=== PATIENT | female | born 1960 | race Caucasian/White ===

== ENCOUNTER 2022-12-06 08:13 | Outpatient (CLI) | payer BC, SELFPAY ==
[2022-12-06 19:48] LABS: Basophils Percent Auto 0.7 % (0.2-1.2); Eosinophils Absolute Auto 0.1 K/mm3 (0-0.3); Eosinophils Percent Auto 2.1 % (0-4.4); Hematocrit 42.6 % (37.0-47.0); Hemoglobin 13.8 g/dL (12.0-15.0); Immature Granulocyte Absolute 0.01 K/mm3 (0.00-0.031); Immature Granulocyte Percent A 0.2 % (0-0.5); Immature Platelet Fraction Pct 1.9 % (0.9-11.2); Lymphocytes Absolute Auto 1.56 K/mm3 (0.9-3.2); Mean Corpuscular HGB Conc 32.4 g/dl (32-36); Mean Corpuscular Hemoglobin 30.9 pg (26-34); Mean Corpuscular Volume 95.3 fl (80-100); Monocytes Absolute Auto 0.4 K/mm3 (0.1-0.6); Monocytes Percent Auto 9.7 % (2.6-8.5); Neutrophils Absolute Auto 2.2 K/mm3 (1.3-6.7); Neutrophils Percent Auto 51.3 % (45.5-73.1); Red Blood Count 4.47 M/mm3 (4.2-5.4); Red Cell Distribution Width 12.4 % (11.5-14.5); White Blood Count 4.3 K/mm3 (4.5-10.0)
[2022-12-06 20:22] LABS: Alanine Aminotransferase 33 U/L (6-35); Albumin Level 4.6 g/dL (3.5-5.1); Alkaline Phosphatase 53 U/L (38-126); Anion Gap 10 mmol/L (8-16); Aspartate Amino Transferase 31 U/L (14-36); Bilirubin,Total 0.5 mg/dL (0.2-1.3); Blood Urea Nitrogen 15 mg/dL (7-17); Calcium 9.1 mg/dL (8.4-10.2); Carbon Dioxide 24 mmol/L (22-30); Chloride 106 mmol/L (98-107); Cholesterol 190 mg/dL (0-200); Estimated Glomerular Filt Rate > 60; Glucose 89 mg/dL (65-110); HDL Direct 64 mg/dL; Potassium 4.5 mmol/L (3.4-5.0); Sodium 140 mmol/L (137-145); Triglycerides 100 mg/dL (<150)
[2022-12-06 20:33] LABS: LDL Cholesterol Direct 78 mg/dL
[2022-12-06 21:54] LABS: Vitamin D 25 Hydroxy 46.9 ng/mL
[2022-12-06 22:08] LABS: Thyroid Stimulating Hormone Reflex 0.491 uIU/mL (0.465-4.68)
== END 2022-12-06 08:14 | disposition home or self-care (01) ==
LOC: ANHGOSHLAB 08:15
PROVIDERS: PCP Family Medicine; Visit Provider Family Medicine
DX: Z00.00 Encounter for general adult medical examination without abnormal findings (principal); E78.5 Hyperlipidemia, unspecified; Z79.899 Other long term (current) drug therapy; Z13.29 Encounter for screening for other suspected endocrine disorder; E53.8 Deficiency of other specified B group vitamins; E55.9 Vitamin D deficiency, unspecified
CPT/HCPCS: 36415; 80053; 80061; 82306; 82607; 84443; 85025; 85055

== ENCOUNTER → 2022-12-10 14:51 | Outpatient (CLI) | payer BC, SELFPAY ==
--- NOTE | ~2022-12-10 | DEXA_ITS ---
Bone Density Report Name: ALEC SALVADOR Age: 62 Sex: Female Ethnicity: White Date of : 1960 Indication: postmenopausal; screening for osteoporosis; parental hip fracture; Referring Provider: Ruy Mendoza Study: Bone densitometry was performed. Exam Date: December 10, 2022 Accession number: [id number] Bone Density: Region BMD T-score Z-score Classification AP Spine (L1-L4) 0.991 -0.5 0.9 Normal Femoral Neck (Left) 0.799 -0.5 0.8 Normal Total Hip (Left) 0.996 0.4 1.4 Normal Femoral Neck (Right) 0.741 -1.0 0.3 Normal Total Hip (Right) 0.957 0.1 1.1 Normal Total Hip Mean 0.977 0.3 1.3 Normal World Health Organization criteria for BMD impression classify patients as: Normal (T-score at or above -1.0), Osteopenia (T-score between -1.0 and -2.5), or Osteoporosis (T-score at or below -2.5). 10-year Fracture Risk: FRAX not reported because: All T-scores for Spine Total, Hip Total, Femoral Neck at or above -1.0 Clinical Information Provided by Patient: Parent has had a hip fracture Has used the following medications: Vitamin D, Calcium Patient maximum height was 62 Menopause Age: 47 Does not regularly consume dairy products Drinks caffeinated beverages Onset of menses at age 15 Number of children 0 Impression: The patient has normal bone mass. The patient has risk factors, including: parental hip fracture. Discussion: BONE DENSITY IS ABOVE THE MINIMUM DESIRABLE LEVEL AT ALL SKELETAL SITES TESTED. This patient?s bone mineral density is above the minimum desirable level (T-score -1.0 or better) at all sites measured. The patient should follow a healthful lifestyle (good nutrition with adequate calcium and vitamin D, and appropriate weight-bearing exercise). Follow-Up: Consider repeating this study in 5 years or sooner if there is some new clinical indication. Reported by: ALMA DELIA on 12/10/2022 3:11:00 PM. Reviewed, dictated and finalized at location AThomas [facility]
== END ==
PROVIDERS: PCP Family Medicine; Visit Provider Family Medicine
DX: Z78.0 Asymptomatic menopausal state (principal)
CPT/HCPCS: 77080

== ENCOUNTER 2022-12-14 17:44 | Outpatient (NON) | payer BC, SELFPAY | END 2022-12-14 17:45 | disposition home or self-care (01) | LOC: ANHLAB 17:46 | PROVIDERS: PCP Family Medicine; Visit Provider Nurse Practitioner | DX: R39.9 Unspecified symptoms and signs involving the genitourinary system (principal) | CPT/HCPCS: 87086 ==

== ENCOUNTER 2022-12-25 12:52 | Outpatient (CLI) | payer BC, SELFPAY ==
[2022-12-26 09:37] LABS: Kit Draw Collected
== END 2022-12-25 12:53 | disposition home or self-care (01) ==
LOC: ANHGOSHLAB 12:54
PROVIDERS: PCP Family Medicine; Visit Provider Nurse Practitioner
DX: R31.9 Hematuria, unspecified (principal)
CPT/HCPCS: 36415

== ENCOUNTER 2023-02-07 16:10 | Outpatient (CLI) | payer BC, SELFPAY ==
[2023-02-07 20:22] LABS: Basophils Percent Auto 0.3 % (0.2-1.2); Eosinophils Absolute Auto 0.1 K/mm3 (0-0.3); Eosinophils Percent Auto 1.5 % (0-4.4); Hematocrit 39.4 % (37.0-47.0); Hemoglobin 13.1 g/dL (12.0-15.0); Immature Granulocyte Absolute 0.01 K/mm3 (0.00-0.031); Immature Granulocyte Percent A 0.1 % (0-0.5); Lymphocytes Absolute Auto 2.71 K/mm3 (0.9-3.2); Lymphocytes Percent Auto 39.6 % (18.3-44.2); Mean Corpuscular HGB Conc 33.2 g/dl (32-36); Mean Corpuscular Hemoglobin 30.5 pg (26-34); Mean Corpuscular Volume 91.8 fl (80-100); Mean Platelet Volume 9.6 fl (7.4-10.4); Monocytes Absolute Auto 0.6 K/mm3 (0.1-0.6); Monocytes Percent Auto 8.3 % (2.6-8.5); Neutrophils Absolute Auto 3.4 K/mm3 (1.3-6.7); Neutrophils Percent Auto 50.2 % (45.5-73.1); Platelet Count Result 289 k/mm3 (150-375); Red Blood Count 4.29 M/mm3 (4.2-5.4); Red Cell Distribution Width 12.6 % (11.5-14.5); White Blood Count 6.8 K/mm3 (4.5-10.0)
== END 2023-02-07 16:11 | disposition home or self-care (01) ==
LOC: ANHGOSHLAB 16:12
PROVIDERS: PCP Family Medicine; Visit Provider Family Medicine
DX: D72.819 Decreased white blood cell count, unspecified (principal)
CPT/HCPCS: 36415; 85025

== ENCOUNTER → 2023-05-16 10:40 | Outpatient (CLI) | payer BC, SELFPAY ==
--- NOTE | ~2023-05-16 | XR_ITS ---
EXAMINATION: XR chest 2V 05/16/2023 10:49 INDICATION: Shortness of breath PROCEDURE: 2 view chest COMPARISON: 11/11/2011 FINDINGS: There is left basilar atelectasis/scarring. No focal pneumonia, edema. The cardiomediastina l silhouette is within normal limits. There are no pleural effusions. There is no pneumothorax susp ected. IMPRESSION: 1: NO ACUTE CARDIOPULMONARY DISEASE. Reviewed, dictated and finalized at location L.
== END ==
PROVIDERS: PCP Family Medicine; Visit Provider Nurse Practitioner Family
DX: R06.02 Shortness of breath (principal)
CPT/HCPCS: 71046

== ENCOUNTER 2023-10-06 08:42 | Emergency (ER) | payer BC, SELFPAY ==
[2023-10-06 08:56] VITALS: BP 112/69; PULSE 75; RESP 16; TEMP 37.1; O2SAT 98
--- NOTE | 2023-10-06 09:21 | ED.FEMALEGU ---
HPI - Female Genitourinary General Chief complaint: Urogenital-Female Stated complaint: UTI SYMPTOMS Source: patient and RN notes reviewed History of Present Illness HPI Narrative: 63-year-old female presents to urgent care with complaints of intermittent dysuria that started on Saturday morning. Patient states she also noticed mid lower back pain which she contributes to lifting weights this week. Patient denies any vomiting, diarrhea, abdominal pain, fevers, chills, chest pain, or shortness of breath. Related Data Home Medications Medication Instructions Recorded Confirmed biotin 1 mg capsule 1 mg PO DAILY 07/19/20 10/02/23 calcium carbonate 600 mg calcium 600 mg PO DAILY 07/19/20 10/02/23 (1,500 mg) tablet (Calcium) cholecalciferol (vitamin D3) 50 50 mcg PO DAILY 07/19/20 10/02/23 mcg (2,000 unit) capsule coenzyme Q10 10 mg capsule 10 mg PO ONCE 07/19/20 10/02/23 loratadine 10 mg tablet (Claritin) 10 mg PO DAILY 07/19/20 10/02/23 omega-3 fatty acids 1,000 mg 1,000 mg PO DAILY 07/19/20 10/02/23 capsule (Fish Oil Concentrate) Saccharomyces boulardii 250 mg 250 mg PO BID 04/05/22 10/02/23 capsule (Daily Probiotic (S. boulardii)) knctpxezljxl-Mu-qwcz-minerals tablet PO .QD 11/20/22 10/02/23 fluticasone propionate 50 2 spray intranasal DAILY 10/02/23 10/02/23 mcg/actuation nasal spray,suspension Allergies Allergy/AdvReac Type Severity Reaction Status Date / Time cefuroxime Allergy Intermediate Unknown Verified 10/02/23 11:03 ofloxacin Allergy Intermediate Unknown Verified 10/02/23 11:03 amoxicillin Allergy Unknown Unknown Verified 10/02/23 11:03 POTASSIUM CLAVULANATE Allergy Mild Unknown Uncoded 10/02/23 11:03 Review of Systems Review of Systems: CONSTITUTIONAL: Denies fever, chills, or sweats. EYES: Denies visual changes, redness, or discharge. ENT: Denies otalgia and sore throat CARDIOVASCULAR: Denies chest pain, palpitations, or edema. RESPIRATORY: Denies cough or dyspnea. GASTROINTESTINAL: Denies abdominal pain, nausea, vomiting, or diarrhea. GENITOURINARY: dysuria SKIN: Denies rash or itching. MUSCULOSKELETAL: mid lower back pain NEUROLOGIC: Denies headache, numbness, or weakness. Pertinent positives per HPI. [facility] [place] Past Medical History Medical History Dyslipidemia (~10/22/17) Endometriosis determined by laparoscopy (~04/1999) Environmental allergies (~02/05/19) History of COVID-19 12/2021 Shortness of breath Sinusitis, acute Surgical History Surgical History History of bilateral salpingo-oophorectomy (~2015) History of laparoscopy (~04/1999) History of sinus surgery (~04/01/01) Family History Family History Other Diabetes mellitus Family history of coronary artery disease Family history of malignant neoplasm of ovary Social History Social History Smoking status: Never smoker Second hand tobacco smoke exposure: No Alcohol intake: current Alcohol use details: consumes 1 glass of wine weekly Substance use: never Substance use type: does not use Lack of Transportation: No Lack of Food: Never True Current Housing: I Have Housing Concerned About Future Housing: No Difficulty Paying Gas/Electric Bills: No Difficulty Paying for Meds: No Currently Unemployed: No Education: Bachelor's Degree Difficulty w/ Childcare or Family Care: No Living arrangements: with family Additional living arrangements comments: Occupation/Education: occupation Gender identity (if verbalized by the patient): Female Sexual Orientation (if Verbalized by the Patient): Straight or Heterosexual Agree to blood products: Yes Comments At the time of my signature, I reviewed and agree with the nursing past medical, surgical, soc
== END 2023-10-06 09:29 | disposition home or self-care (01) ==
PROVIDERS: Emergency Provider Nurse Practitioner Family; PCP Family Medicine
DX: N39.0 Urinary tract infection, site not specified (principal); B96.20 Unspecified Escherichia coli [E. coli] as the cause of diseases classified elsewhere; E78.5 Hyperlipidemia, unspecified; N80.9 Endometriosis, unspecified; Z86.16 Personal history of COVID-19
CPT/HCPCS: 81003; 87077; 87086; 87186; 99213; G0463

== ENCOUNTER 2023-10-12 12:08 | Emergency (ER) | payer BC, SELFPAY ==
[2023-10-12 12:38] VITALS: BP 128/70; PULSE 76; RESP 16; TEMP 36.8; O2SAT 100
--- NOTE | 2023-10-12 13:19 | ED.FEMALEGU ---
HPI - Female Genitourinary General Chief complaint: Urogenital-Female Stated complaint: Uti symptoms Time Seen by Provider: 10/12/23 13:15 Source: patient, RN notes reviewed and old records reviewed Mode of arrival: ambulatory Limitations: no limitations History of Present Illness HPI Narrative: 63-year-old female presents to [facility] Care with complaints of continued burning and pressure with urination even though she has completed recent antibiotic therapy. Patient denies any vaginal discharge but itching or any concern for STD exposure. Patient reports that she has not had any fevers, chills or sweats, denies any CVA tenderness, no foul odor to urine. MD elicited complaint: dysuria and other (pressure in perineal area) Pertinent past history: other (recent UTI) Onset (ago): day(s) (2) Location of symptoms: perineum Severity scale (1-10): 3 Vaginal discharge: none Related Data Home Medications Medication Instructions Recorded Confirmed biotin 1 mg capsule 1 mg PO DAILY 07/19/20 10/02/23 calcium carbonate 600 mg calcium 600 mg PO DAILY 07/19/20 10/02/23 (1,500 mg) tablet (Calcium) cholecalciferol (vitamin D3) 50 50 mcg PO DAILY 07/19/20 10/02/23 mcg (2,000 unit) capsule coenzyme Q10 10 mg capsule 10 mg PO ONCE 07/19/20 10/02/23 loratadine 10 mg tablet (Claritin) 10 mg PO DAILY 07/19/20 10/02/23 omega-3 fatty acids 1,000 mg 1,000 mg PO DAILY 07/19/20 10/02/23 capsule (Fish Oil Concentrate) Saccharomyces boulardii 250 mg 250 mg PO BID 04/05/22 10/02/23 capsule (Daily Probiotic (S. boulardii)) toclhznlkfjl-Vv-dsfn-minerals tablet PO .QD 11/20/22 10/02/23 fluticasone propionate 50 2 spray intranasal DAILY 10/02/23 10/02/23 mcg/actuation nasal spray,suspension Allergies Allergy/AdvReac Type Severity Reaction Status Date / Time cefuroxime Allergy Intermediate Unknown Verified 10/12/23 13:26 ofloxacin Allergy Intermediate Unknown Verified 10/12/23 13:26 amoxicillin Allergy Unknown Unknown Verified 10/12/23 13:26 POTASSIUM CLAVULANATE Allergy Mild Unknown Uncoded 10/12/23 13:26 Review of Systems Review of Systems: CONSTITUTIONAL: Denies fever, chills, or sweats. CARDIOVASCULAR: Denies chest pain, palpitations, or edema. RESPIRATORY: Denies cough or dyspnea. GASTROINTESTINAL: Denies abdominal pain, nausea, vomiting, or diarrhea. GENITOURINARY: Reports dysuria, some frequency, urgency. Denies flank pain or hematuria. SKIN: Denies rash states some perineal itching denies any vaginal discharge MUSCULOSKELETAL: Denies back pain or myalgia. Denies CVA tenderness NEUROLOGIC: Denies headache All systems reviewed & are unremarkable except as noted in HPI and below PMFSH Past Medical History Medical History Dyslipidemia (~10/22/17) Endometriosis determined by laparoscopy (~04/1999) Environmental allergies (~02/05/19) History of COVID-19 12/2021 Shortness of breath Sinusitis, acute Surgical History Surgical History History of bilateral salpingo-oophorectomy (~2015) History of laparoscopy (~04/1999) History of sinus surgery (~04/01/01) Family History Family History Other Diabetes mellitus Family history of coronary artery disease Family history of malignant neoplasm of ovary Social History Social History Smoking status: Never smoker Second hand tobacco smoke exposure: No Alcohol intake: current Alcohol use details: consumes 1 glass of wine weekly Substance use: never Substance use type: does not use Lack of Transportation: No Lack of Food: Never True Current Housing: I Have Housing Concerned About Future Housing: No Difficulty Paying Gas/Electric Bills: No Difficulty Paying for Meds: No Currently Unemployed: No Education: Bachelor's Degree [employer]if
== END 2023-10-12 13:29 | disposition home or self-care (01) ==
PROVIDERS: Emergency Provider Registered Nurse; PCP Family Medicine
DX: R30.0 Dysuria (principal); E78.5 Hyperlipidemia, unspecified
CPT/HCPCS: 81003; 87086; 99213; G0463

== ENCOUNTER 2023-12-16 07:54 | Outpatient (CLI) | payer BC, SELFPAY ==
[2023-12-16 19:05] LABS: Basophils Percent Auto 0.4 % (0.2-1.2); Eosinophils Absolute Auto 0.1 K/mm3 (0-0.3); Hematocrit 43.5 % (37.0-47.0); Hemoglobin 13.6 g/dL (12.0-15.0); Immature Granulocyte Absolute 0.01 K/mm3 (0.00-0.031); Immature Granulocyte Percent A 0.2 % (0-0.5); Lymphocytes Absolute Auto 1.83 K/mm3 (0.9-3.2); Lymphocytes Percent Auto 39.6 % (18.3-44.2); Mean Corpuscular HGB Conc 31.3 g/dl (32-36); Mean Corpuscular Hemoglobin 30.3 pg (26-34); Mean Corpuscular Volume 96.9 fl (80-100); Monocytes Absolute Auto 0.4 K/mm3 (0.1-0.6); Monocytes Percent Auto 8.7 % (2.6-8.5); Neutrophils Absolute Auto 2.2 K/mm3 (1.3-6.7); Neutrophils Percent Auto 48.1 % (45.5-73.1); Nucleated Red Blood Cells Perc 0.6 % (0.0-0.2); Platelet Count Result 269 k/mm3 (150-375); Red Blood Count 4.49 M/mm3 (4.2-5.4); Red Cell Distribution Width 12.8 % (11.5-14.5); White Blood Count 4.6 K/mm3 (4.5-10.0)
[2023-12-16 19:25] LABS: Alanine Aminotransferase 28 U/L (6-35); Albumin Level 4.4 g/dL (3.5-5.1); Alkaline Phosphatase 54 U/L (38-126); Anion Gap 7 mmol/L (8-16); Aspartate Amino Transferase 42 U/L (14-36); Bilirubin,Total 0.6 mg/dL (0.2-1.3); Blood Urea Nitrogen 18 mg/dL (7-17); Calcium 9.2 mg/dL (8.4-10.2); Carbon Dioxide 30 mmol/L (22-30); Chloride 103 mmol/L (98-107); Cholesterol 196 mg/dL (0-200); Estimated Glomerular Filt Rate 56; Glucose 86 mg/dL (65-110); HDL Direct 63 mg/dL; Potassium 4.2 mmol/L (3.4-5.0); Sodium 140 mmol/L (137-145); Triglycerides 80 mg/dL (<150)
[2023-12-16 19:36] LABS: LDL Cholesterol Direct 93 mg/dL
[2023-12-19 17:04] LABS: Vitamin D 1,25 (OH)2 Total 49 pg/mL (18-72); Vitamin D2 1,25 (OH)2 <8 pg/mL; Vitamin D3 1,25 (OH)2 49 pg/mL
== END 2023-12-16 07:55 | disposition home or self-care (01) ==
LOC: ANHGOSHLAB 07:55
PROVIDERS: PCP Family Medicine; Visit Provider Nurse Practitioner Family
DX: Z00.00 Encounter for general adult medical examination without abnormal findings (principal); E55.9 Vitamin D deficiency, unspecified; I10 Essential (primary) hypertension
CPT/HCPCS: 36415; 80053; 80061; 82652; 84443; 85025

== ENCOUNTER 2024-02-18 15:08 | Outpatient (CLI) | payer BC, SELFPAY ==
--- NOTE | ~2024-02-18 | XR_ITS ---
XR sinus min 3V DATE: 02/18/2024 15:47 INDICATION: Other specified symptoms and signs TECHNIQUE: Jaqueline Mao, lateral and submental vertical views COMPARISON: None FINDINGS: There is prominent soft soft tissue thickening along the lateral wall right maxillary antru m. The paranasal sinuses otherwise appear normally developed and aerated. The mastoid air cells appea r unremarkable. Normal sella turcica. IMPRESSION: Prominent mucoperiosteal thickening of the lateral wall the right maxillary sinus; parana lorie sinuses and mastoid air cells otherwise appear unremarkable. Reviewed, dictated and finalized at location L. IMPRESSION: Prominent mucoperiosteal thickening of the lateral wall the right m axillary sinus; paranasal sinuses and mastoid air cells otherwise appear unrema rkable.
== END 2024-02-18 15:09 ==
PROVIDERS: PCP Family Medicine; Visit Provider Family Medicine
DX: R09.89 Other specified symptoms and signs involving the circulatory and respiratory systems (principal); Z91.09 Other allergy status, other than to drugs and biological substances
CPT/HCPCS: 70220

== ENCOUNTER 2024-03-04 08:49 | Outpatient (CLI) | payer BC, SELFPAY ==
--- NOTE | ~2024-03-04 | CT_ITS ---
EXAMINATION: CT brain & sinus wo con DATE: 03/04/2024 09:18 INDICATION: TECHNIQUE: Computed tomography of the head and paranasal sinuses was performed without intravenous co ntrast. Exam dose: 726.40 mGy-cm total exam DLP. Volume-rendered and maximum intensity projection 3D reconstructions of the intracranial arteries were created by the technologist on a separate workst ation. COMPARISON: None. FINDINGS: The lowest portion of the posterior fossa is obscured by surgical streak artifact from toot h fillings. No intracranial mass lesion or hemorrhage or cerebrovascular accident, midline shift or mass effect i s detected. Normal ventricular size. No subdural or epidural hematoma. Bilateral carotid siphon internal carotid artery calcifications and vertebral and basilar artery calc ifications. The paranasal sinuses and mastoid air cells are normally developed and aerated. No fracture or bone destruction of the cranial vault. IMPRESSION: Cerebral atherosclerosis; no significant intracranial abnormality Reviewed, dictated and finalized at Location A. Reviewed, dictated and finalized at location B.
== END 2024-03-04 08:50 ==
LOC: GOSHIMG 08:50
PROVIDERS: PCP Family Medicine; Visit Provider Family Medicine
DX: I67.2 Cerebral atherosclerosis (principal); J32.0 Chronic maxillary sinusitis
CPT/HCPCS: 70450; 70486

== ENCOUNTER 2024-05-06 11:45 | Outpatient (CLI) | payer BC, SELFPAY ==
[2024-05-06 13:01] LABS: Amylase 77 U/L (30-110); Lipase 170 U/L (23-300)
== END 2024-05-06 11:46 | disposition home or self-care (01) ==
LOC: ANHGOSHLAB 11:47
PROVIDERS: PCP Family Medicine; Visit Provider Nurse Practitioner
DX: R10.0 Acute abdomen (principal)
CPT/HCPCS: 36415; 82150; 83690

== ENCOUNTER 2024-05-07 21:17 | Emergency (ER) | payer BC, SELFPAY ==
--- NOTE | ~2024-05-07 | XR_ITS ---
XR chest 2V Ordering provider: Marivel Badillo MD History: 63 years Female with . chest pain INTERMITTENT PAIN AND TIGHTNESS . Comparison: May 16, 2023 FINDINGS: MEDIASTINUM: The cardiac silhouette is not enlarged. LUNGS: No infiltrates, effusions or pneumothorax. OTHER: No free air under the diaphragm. IMPRESSION: No acute cardiopulmonary pathology. Reviewed, dictated and finalized at location A.
--- NOTE | 2024-05-07 21:18 | ECG_ITS ---
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 Measurements Intervals [place] Rate: 67 P: 45 RI: 164 QRS: -14 QRSD: 84 T: 25 QT: 404 QTc: 427 Interpretive Statements SINUS RHYTHM BORDERLINE LEFTWARD AXIS POSSIBLE RIGHT VENTRICULAR CONDUCTION DELAY [RSR (QR) IN V1/V2] BORDERLINE ECG No previous ECG available for comparison Electronically Signed On 05-08-2024 09:04:09 CDT by Esdras Upton M.D.
[2024-05-07 21:19] VITALS: BP 147/70; PULSE 71; RESP 16; TEMP 36.6; O2SAT 100
[2024-05-07 21:48] LABS: Alanine Aminotransferase 31 U/L (6-35); Albumin Level 4.7 g/dL (3.5-5.1); Alkaline Phosphatase 61 U/L (38-126); Anion Gap 6 mmol/L (4-12); Aspartate Amino Transferase 37 U/L (14-36); Bilirubin,Total 0.5 mg/dL (0.2-1.3); Blood Urea Nitrogen 26 mg/dL (7-17); Calcium 9.8 mg/dL (8.4-10.2); Carbon Dioxide 29 mmol/L (22-30); Chloride 103 mmol/L (98-107); Estimated CRCL calculation 50 ml/min; Estimated Glomerular Filt Rate 56; Glucose 101 mg/dL (65-110); Lipase 165 U/L (23-300); Potassium 4.6 mmol/L (3.4-5.0); Sodium 138 mmol/L (137-145)
[2024-05-07 21:54] LABS: Basophils Percent Auto 0.5 % (0.2-1.2); Eosinophils Absolute Auto 0.3 K/mm3 (0-0.3); Eosinophils Percent Auto 4.6 % (0-4.4); Hematocrit 41.6 % (37.0-47.0); Hemoglobin 13.6 g/dL (12.0-15.0); Immature Granulocyte Absolute 0.01 K/mm3 (0.00-0.031); Immature Granulocyte Percent A 0.2 % (0-0.5); Lymphocytes Absolute Auto 2.54 K/mm3 (0.9-3.2); Lymphocytes Percent Auto 38.8 % (18.3-44.2); Mean Corpuscular HGB Conc 32.7 g/dl (32-36); Mean Corpuscular Hemoglobin 30.4 pg (26-34); Mean Corpuscular Volume 93.1 fl (80-100); Mean Platelet Volume 9.9 fl (7.4-10.4); Monocytes Absolute Auto 0.5 K/mm3 (0.1-0.6); Monocytes Percent Auto 8.1 % (2.6-8.5); Neutrophils Absolute Auto 3.1 K/mm3 (1.3-6.7); Neutrophils Percent Auto 47.8 % (45.5-73.1); Platelet Count Result 273 k/mm3 (150-375); Red Blood Count 4.47 M/mm3 (4.2-5.4); Red Cell Distribution Width 12.9 % (11.5-14.5); White Blood Count 6.6 K/mm3 (4.5-10.0)
[2024-05-07 21:55] LABS: INR 0.9; Prothrombin Time 12.8 Seconds (11.1-14.7)
[2024-05-07 21:56] LABS: Partial Thromboplastin Time 31.6 Seconds (22.3-36.8)
[2024-05-07 21:57] VITALS: PULSE 67
[2024-05-07 21:58] VITALS: O2SAT 100
[2024-05-07 21:59] VITALS: BP 146/68; PULSE 66; RESP 16; O2SAT 100
[2024-05-07 21:59] LABS: Troponin I < 0.012 ng/mL (0.000-0.034)
--- NOTE | 2024-05-07 23:13 | ED.CHESTPAIN ---
HPI - Chest Pain General Chief Complaint: Chest Pain Stated Complaint: chest pain Time Seen by Provider: 05/07/24 22:46 History of Present Illness HPI narrative: Patient is 63-year-old female who presents to the emergency department this evening complaining of chest pressure and fluttering sensation. Patient states that her symptoms initially started this afternoon around 3:00 p.m. and only lasted few sec. Patient did not think much of it and went about her day finishing her work. Patient states that her went on a 2-1/2 mi and she felt great. patient then states that later in the evening she started to feel some chest pressure and more of the fluttering / palpitations sensation again. This was concerning for the patient enough to come to the emergency department for further evaluation. Patient states that she is now completely asymptomatic since that the symptoms have resolved. Patient admits to a family history of coronary artery disease but denies any personal history of any cardiovascular disease. She is denying any nausea or vomiting, any abdominal pain, any shortness of breath, and denies any urinary symptoms. No fevers or chills at home. No sick contacts at home. Patient admits that her sister underwent brain surgery today and she has been under a lot of stress secondary to this. No additional symptoms or concerns at this time. Related Data Home Medications Medication Instructions Recorded Confirmed biotin 1 mg capsule 1 mg PO DAILY 07/19/20 05/06/24 calcium carbonate (Calcium 600) 600 mg PO DAILY 07/19/20 05/06/24 cholecalciferol (vitamin D3) 50 50 mcg PO DAILY 07/19/20 05/06/24 mcg (2,000 unit) capsule coenzyme Q10 10 mg capsule 10 mg PO ONCE 07/19/20 05/06/24 loratadine 10 mg tablet (Claritin) 10 mg PO DAILY 07/19/20 05/06/24 omega-3 fatty acids 1,000 mg 1,000 mg PO DAILY 07/19/20 05/06/24 capsule (Fish Oil Concentrate) Saccharomyces boulardii 250 mg 250 mg PO BID 04/05/22 05/06/24 capsule (Daily Probiotic (S. boulardii)) cooimilpymkc-Ob-matb-minerals tablet PO .QD 11/20/22 05/06/24 Allergies Allergy/AdvReac Type Severity Reaction Status Date / Time cefuroxime Allergy Intermediate Unknown Verified 05/07/24 21:59 ofloxacin Allergy Intermediate Unknown Verified 05/07/24 21:59 amoxicillin Allergy Unknown Unknown Verified 05/07/24 21:59 POTASSIUM CLAVULANATE Allergy Mild Unknown Uncoded 05/07/24 21:59 Review of Systems Review of Systems: All systems are reviewed and are negative unless stated otherwise in the HPI. [facility] Past Medical History Medical History Dyslipidemia (~10/22/17) Endometriosis determined by laparoscopy (~04/1999) Environmental allergies (~02/05/19) History of COVID-19 12/2021 Surgical History Surgical History History of bilateral salpingo-oophorectomy (~2015) History of laparoscopy (~04/1999) History of sinus surgery (~04/01/01) Family History Family History Other Diabetes mellitus Family history of coronary artery disease Family history of malignant neoplasm of ovary Social History Social History Smoking status: Never smoker Second hand tobacco smoke exposure: No Alcohol intake: current Alcohol use details: consumes 1 glass of wine weekly Substance use: never Substance use type: does not use Lack of Transportation: No Lack of Food: Never True Current Housing: I Have Housing Concerned About Future Housing: No Difficulty Paying Gas/Electric Bills: No Difficulty Paying for Meds: No Currently Unemployed: No Education: Bachelor's Degree Difficulty w/ Childcare or Family Care: No Living arrangements: with family Additional living arrangements comments: Occupation/Education: occupation Gender identit
[2024-05-07 23:29] LABS: Appearance Urine Clear (Clear); Bacteria Urine None Seen /hpf; Bilirubin Urine Negative (Negative); Blood Urine Negative (Negative); Color Urine Yellow (Yellow); Glucose Urine UA Negative (Negative); Ketones Urine Negative (Negative); Leukocyte Esterase Ur Trace LEU/UL (Negative); Nitrate Urine Negative (Negative); Non Pathogenic Casts 0-2; Protein Urine Negative (Negative); RBC Urine 0-2 /hpf (0-2); Specific Grav Ur 1.006 (1.001-1.035); Squamous Epithelial Cell Urine None Seen /hpf (Few); Urobilinogen Urine 0.2 mg/dL (<2.0); WBC Urine 0-5 /hpf (0-3)
[2024-05-07 23:33] LABS: Add Urine Microscopic? YES
--- NOTE | 2024-05-08 00:27 | ECG_ITS ---
[facility] [address] Test Date: 2024-05-08 Pat Name: Diane Moss Department: Room: Gender: F Rn Sane: : 1960 Requested By: Marivel Calles Order Number: [id number] Don MD: Esdras Upton M.D. Measurements Intervals [place] Rate: 61 P: 39 [place]: 163 QRS: -3 QRSD: 87 T: 23 QT: 428 QTc: 432 Interpretive Statements SINUS RHYTHM POSSIBLE RIGHT VENTRICULAR CONDUCTION DELAY [RSR (QR) IN V1/V2] BORDERLINE ECG Compared to ECG 05/07/2024 21:25:36 No significant changes Electronically Signed On 05-08-2024 09:10:08 CDT by Esdras Upton M.D.
[2024-05-08 01:17] LABS: Troponin I < 0.012 ng/mL (0.000-0.034)
[2024-05-08 01:30] VITALS: BP 122/72; PULSE 74; RESP 15; O2SAT 100
== END 2024-05-08 01:30 | disposition home or self-care (01) ==
PROVIDERS: Emergency Provider Emergency Medicine; PCP Family Medicine
DX: R07.89 Other chest pain (principal); E78.5 Hyperlipidemia, unspecified; Z86.16 Personal history of COVID-19; Z90.722 Acquired absence of ovaries, bilateral; Z90.79 Acquired absence of other genital organ(s); R94.31 Abnormal electrocardiogram [ECG] [EKG]
CPT/HCPCS: 36415; 71046; 80053; 81001; 81025; 83690; 84484; 85025; 85610; 85730; 93005; 99284

== ENCOUNTER 2024-06-08 07:57 | Outpatient (CLI) | payer BC, SELFPAY ==
--- NOTE | ~2024-06-08 | MR_ITS ---
MRI of the abdomen: Clinical indication: To previous position 2 malignancy. Technique: Coronal SSFSE ARC, WATER:coronal LAVA-FLEX, Coronal 2D FIESTA FatSat, Axial SSFSE BH ARC, Axial 3D DualEcho BH, Axial SSFSE-IR, Axial DWI b=500, Axial 2D FIESTA FatSat, pre and dynamic postco ntrast Axial LAVA ARC, postcontrast Coronal In and Opposed phase LAVA FLEX. Following intravenous adm inistration of 15 cc MultiHance gadolinium, T1-weighted fat-sat imaging was performed in the axial an d coronal planes. Findings: Multiple gallstones are noted. The common bile duct is normal in course and caliber. No fi lling defects are seen within the CBD. No evidence of intrahepatic biliary ductal dilatation. The baez creatic duct is normal in size. Liver, spleen, pancreas, adrenals, kidneys appear normal. The aorta and the paraaortic regions appear normal. Impression: Unremarkable exam. Reviewed, dictated and finalized at location M. Impression: Unremarkable exam.
== END 2024-06-08 07:58 | disposition home or self-care (01) ==
PROVIDERS: PCP Family Medicine; Visit Provider Nurse Practitioner
DX: Z15.01 Genetic susceptibility to malignant neoplasm of breast (principal); Z15.02 Genetic susceptibility to malignant neoplasm of ovary; Z15.09 Genetic susceptibility to other malignant neoplasm
CPT/HCPCS: 74183; 76376; A9577

== ENCOUNTER 2024-06-29 21:09 | Emergency (ER) | payer BC, SELFPAY ==
--- NOTE | ~2024-06-29 | XR_ITS ---
EXAMINATION: XR chest 2V DATE: 06/29/2024 21:27 INDICATION: Chest pain TECHNIQUE: PA and lateral views of the chest were obtained. COMPARISON: Chest radiograph dated 05/07/2024 FINDINGS: Unchanged lingular mild linear discoid atelectasis/scarring at the lateral left lower lung zone. No n ew airspace opacities, pulmonary edema, pleural effusion or pneumothorax. The cardiomediastinal silho uette is normal. IMPRESSION: 1. Mild lingular discoid atelectasis/scarring. Reviewed, dictated and finalized at location A.
--- NOTE | 2024-06-29 21:10 | ECG_ITS ---
Test Date: 2024-06-29 21:14:16 Measurements Intervals [place] Rate: 60 P: 52 [place]: 165 QRS: -6 QRSD: 88 T: 5 QT: 430 QTc: 430 Interpretive Statements SINUS RHYTHM DELAYED PRECORDIAL R/S TRANSITION POSSIBLE RIGHT VENTRICULAR CONDUCTION DELAY BORDERLINE T WAVE ABNORMALITY- ANT/INF LEADS BORDERLINE ECG Compared to ECG 05/08/2024 00:31:48 T WAVE ABNORMALITY NOW PRESENT Electronically Signed On 06-30-2024 06:20:02 CDT by Jaylen Peña D.O.
[2024-06-29 21:15] VITALS: BP 132/78; PULSE 62; RESP 15; TEMP 36.6; O2SAT 100
[2024-06-29] MEDS: ASPIRIN 81 MG CHEWABLE TABLET 324 MG PO (21:21)
[2024-06-29 22:22] LABS: Alanine Aminotransferase 28 U/L (6-35); Albumin Level 4.3 g/dL (3.5-5.1); Alkaline Phosphatase 58 U/L (38-126); Anion Gap 10 mmol/L (4-12); Aspartate Amino Transferase 32 U/L (14-36); Bilirubin,Total 0.3 mg/dL (0.2-1.3); Blood Urea Nitrogen 25 mg/dL (7-17); Calcium 9.1 mg/dL (8.4-10.2); Carbon Dioxide 26 mmol/L (22-30); Chloride 101 mmol/L (98-107); Estimated CRCL calculation 50 ml/min; Estimated Glomerular Filt Rate 56; Glucose 102 mg/dL (65-110); Lipase 141 U/L (23-300); Potassium 3.6 mmol/L (3.4-5.0); Sodium 137 mmol/L (137-145)
[2024-06-29 22:23] LABS: INR 0.9; Partial Thromboplastin Time 28.8 Seconds (22.3-36.8); Prothrombin Time 12.9 Seconds (11.1-14.7)
[2024-06-29 22:34] LABS: Troponin I < 0.012 ng/mL (0.000-0.034)
[2024-06-29 22:43] LABS: Basophils Percent Auto 0.3 % (0.2-1.2); Eosinophils Absolute Auto 0.1 K/mm3 (0-0.3); Eosinophils Percent Auto 1.6 % (0-4.4); Hematocrit 37.3 % (37.0-47.0); Hemoglobin 12.4 g/dL (12.0-15.0); Immature Granulocyte Absolute 0.01 K/mm3 (0.00-0.031); Immature Granulocyte Percent A 0.1 % (0-0.5); Lymphocytes Absolute Auto 1.99 K/mm3 (0.9-3.2); Lymphocytes Percent Auto 29.2 % (18.3-44.2); Mean Corpuscular HGB Conc 33.2 g/dl (32-36); Mean Corpuscular Hemoglobin 30.5 pg (26-34); Mean Corpuscular Volume 91.9 fl (80-100); Mean Platelet Volume 9.4 fl (7.4-10.4); Monocytes Absolute Auto 0.6 K/mm3 (0.1-0.6); Monocytes Percent Auto 8.4 % (2.6-8.5); Neutrophils Absolute Auto 4.1 K/mm3 (1.3-6.7); Neutrophils Percent Auto 60.4 % (45.5-73.1); Platelet Count Result 234 k/mm3 (150-375); Red Blood Count 4.06 M/mm3 (4.2-5.4); Red Cell Distribution Width 12.8 % (11.5-14.5); White Blood Count 6.8 K/mm3 (4.5-10.0)
--- NOTE | 2024-06-29 23:18 | ED.CHESTPAIN ---
HPI - Chest Pain General Chief Complaint: Chest Pain Stated Complaint: chest pain/pressure Time Seen by Provider: 06/29/24 22:20 Source: patient and family Limitations: no limitations History of Present Illness HPI narrative: Patient is a 63-year-old female presents to the emergency department complaining of chest pain. Patient describes the pain as a pressure sensation in the middle of her chest, started around 8:00 p.m. tonight when she was changing clothes and not doing any significant exertion, denies any history of this sensation in the past, overall constant, progressively improving but has not gone away completely, does not radiate, has not noticed anything making it better or worse, has not tried anything for the discomfort. 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 Patient admits to taking cholesterol medications. Patient denies high blood pressure or diabetes. Patient denies history of blood clots or unilateral lower extremity swelling. Patient admits to a family history of factor 5 Leiden deficiency. Patient admits to a family history of heart disease in her mother and her early 60s and extensive heart disease as well in her father. Patient denies being a smoker. Patient denies shortness of breath, cough, fever, recent injuries, recent illness, numbness, weakness, urinary discomfort, diarrhea, nausea, vomiting, melena, hematochezia, abdominal pain, palpitations. Related Data Home Medications Medication Instructions Recorded Confirmed biotin 1 mg capsule 1 mg PO DAILY 07/19/20 05/25/24 calcium carbonate (Calcium 600) 600 mg PO DAILY 07/19/20 05/25/24 cholecalciferol (vitamin D3) 50 50 mcg PO DAILY 07/19/20 05/25/24 mcg (2,000 unit) capsule coenzyme Q10 10 mg capsule 10 mg PO ONCE 07/19/20 05/25/24 loratadine 10 mg tablet (Claritin) 10 mg PO DAILY 07/19/20 05/25/24 omega-3 fatty acids 1,000 mg 1,000 mg PO DAILY 07/19/20 05/25/24 capsule (Fish Oil Concentrate) Saccharomyces boulardii 250 mg 250 mg PO BID 04/05/22 05/25/24 capsule (Daily Probiotic (S. boulardii)) shfefnsyttwf-Im-dzfa-minerals tablet PO .QD 11/20/22 05/25/24 Allergies Allergy/AdvReac Type Severity Reaction Status Date / Time cefuroxime Allergy Intermediate Unknown Verified 05/25/24 13:15 ofloxacin Allergy Intermediate Unknown Verified 05/25/24 13:15 amoxicillin Allergy Unknown Unknown Verified 05/25/24 13:15 POTASSIUM CLAVULANATE Allergy Mild Unknown Uncoded 05/19/24 11:11 Review of Systems Review of Systems: A 10 system review of systems was completed on the patient and is negative except for what is stated in the HPI. Nursing and ancillary documentation was reviewed. [facility] Past Medical History Medical History Dyslipidemia (~10/22/17) Endometriosis determined by laparoscopy (~04/1999) Environmental allergies (~02/05/19) History of COVID-19 12/2021 Surgical History Surgical History History of bilateral salpingo-oophorectomy (~2015) History of laparoscopy (~04/1999) History of sinus surgery (~04/01/01) Family History Family History Other Diabetes mellitus Family history of coronary artery disease Family history of malignant neoplasm of ovary Social History Social History Smoking status: Never smoker Second hand tobacco smoke exposure: No Alcohol intake: current Alcohol use details: consumes 1 glass of wine weekly Substance use: never Substance use type: does not use Lack of Transportation: No Lack of Food: Never True Current Housing: I Have Housing Concerned About Future Housing: No Difficulty Paying Gas/Electric Bills: No Difficulty Paying for Meds: No Currently Unemployed: No Education: Bachelor's D
[2024-06-29 23:19] LABS: D Dimer 0.29 ug/mL (<0.48)
[2024-06-29 23:25] LABS: Magnesium 2.3 mg/dL (1.6-2.3)
[2024-06-29 23:26] VITALS: PULSE 60; O2SAT 99
[2024-06-29] MEDS: FAMOTIDINE 20 MG/2 ML VIAL IV PUSH (23:26)
[2024-06-29 23:56] LABS: NT Pro B Type Natriuretic Pept 26 pg/mL (19.9-100)
[2024-06-30 00:56] LABS: Troponin I < 0.012 ng/mL (0.000-0.034)
[2024-06-30 01:21] VITALS: BP 123/67; PULSE 57; RESP 18; O2SAT 98
--- NOTE | 2024-06-30 02:59 | ECG_ITS ---
Test Date: 2024-06-30 03:04:09 Measurements Intervals [place] Rate: 52 P: 30 [place]: 175 QRS: 2 QRSD: 88 T: 9 QT: 477 QTc: 445 Interpretive Statements SINUS BRADYCARDIA POSSIBLE RIGHT VENTRICULAR CONDUCTION DELAY BORDERLINE T WAVE ABNORMALITY- ANT/INF LEADS BASELINE ARTIFACT- I, II, AVR BORDERLINE ECG Compared to ECG 06/29/2024 21:14:16 HEART RATE HAS DECREASED Electronically Signed On 06-30-2024 06:23:29 CDT by Jaylen Peña D.O.
[2024-06-30 03:30] LABS: Troponin I < 0.012 ng/mL (0.000-0.034)
== END 2024-06-30 04:06 | disposition home or self-care (01) ==
PROVIDERS: Emergency Provider Student in an Organized Health Care Education/Training Program; PCP Family Medicine
DX: R07.9 Chest pain, unspecified (principal); R94.31 Abnormal electrocardiogram [ECG] [EKG]; E78.5 Hyperlipidemia, unspecified
CPT/HCPCS: 36415; 71046; 80053; 83690; 83735; 83880; 84484; 85025; 85380; 85610; 85730; 93005; 96374; 99284; A9270

== ENCOUNTER 2024-07-20 08:11 | Outpatient (CLI) | payer BC, SELFPAY ==
--- NOTE | 2024-07-20 08:17 | EST_ITS ---
Patient Info Name: Diane Moss Age: 63 years : 1960 Gender: Female Ht: 63 in Wt: 165 lbs BSA: 1.85 m2 HR: 54 bpm BP: 117 / 65 mmHg Exam Date: 07/20/2024 8:24 AM Exam Location: [facility] Patient Status: Outpatient Admit Date: 07/20/2024 Staff Ordering Physician: Kalia Calvillo APRN Attending Provider: Kalia Calvillo APRN Exercise Technologist: Sydney Guajardo MAC Exercise Physician: Jaylen Peña DO Exam Type: CA stress test treadmill Study Info A treadmill exercise stress test was performed. Summary 1. 1. Negative Fel[place] exercise stress test for ischemic ST changes by ECG criteria. 2. 2. Good functional capacity, achieving 10 METs of workload. 3. 3. Appropriate HR response to exercise. 4. 4. Appropriate HR recovery at 1 minute post exercise. 5. 5. No imaging with stress testing. 6. 6. Patient informed of the above results. Protocol: [place] Stress ECG Details Stage: REST Duration (min): 2 min : 21 sec Speed (mph): 0.0 Grade (%): 0 HR (bpm): 55 SBP (mmHg): 117 DBP (mmHg): 65 METS: --- Stage: REST Duration (min): 12 min : 12 sec Speed (mph): 0.0 Grade (%): 0 HR (bpm): 70 SBP (mmHg): 117 DBP (mmHg): 65 METS: --- Stage: STAGE 1 Duration (min): 1 min : 0 sec Speed (mph): 1.7 Grade (%): 10 HR (bpm): 91 SBP (mmHg): 117 DBP (mmHg): 65 METS: --- Stage: STAGE 1 Duration (min): 2 min : 0 sec Speed (mph): 1.7 Grade (%): 10 HR (bpm): 105 SBP (mmHg): 117 DBP (mmHg): 65 METS: --- Stage: STAGE 1 Duration (min): 3 min : 0 sec Speed (mph): 1.7 Grade (%): 10 HR (bpm): 110 SBP (mmHg): 135 DBP (mmHg): 60 METS: --- Stage: STAGE 2 Duration (min): 1 min : 0 sec Speed (mph): 2.5 Grade (%): 12 HR (bpm): 118 SBP (mmHg): 135 DBP (mmHg): 60 METS: --- Stage: STAGE 2 Duration (min): 2 min : 0 sec Speed (mph): 2.5 Grade (%): 12 HR (bpm): 121 SBP (mmHg): 158 DBP (mmHg): 60 METS: --- Stage: STAGE 2 Duration (min): 3 min : 0 sec Speed (mph): 2.5 Grade (%): 12 HR (bpm): 121 SBP (mmHg): 158 DBP (mmHg): 60 METS: --- Stage: STAGE 3 Duration (min): 1 min : 0 sec Speed (mph): 3.4 Grade (%): 14 HR (bpm): 128 SBP (mmHg): 133 DBP (mmHg): 63 METS: --- Stage: STAGE 3 Duration (min): 2 min : 0 sec Speed (mph): 3.4 Grade (%): 14 HR (bpm): 133 SBP (mmHg): 133 DBP (mmHg): 63 METS: --- Stage: STAGE 3 Duration (min): 2 min : 31 sec Speed (mph): 3.4 Grade (%): 14 HR (bpm): 137 SBP (mmHg): 133 DBP (mmHg): 63 METS: --- Stage: RECOVERY Duration (min): 0 min : 28 sec Speed (mph): 0.0 Grade (%): 0 HR (bpm): 127 SBP (mmHg): 145 DBP (mmHg): 66 METS: --- Stage: RECOVERY Duration (min): 1 min : 28 sec Speed (mph): 0.0 Grade (%): 0 HR (bpm): 97 SBP (mmHg): 145 DBP (mmHg): 66 METS: --- Stage: RECOVERY
== END 2024-07-20 08:12 | disposition home or self-care (01) ==
LOC: ANHCARD 08:14
PROVIDERS: PCP Family Medicine; Visit Provider Student in an Organized Health Care Education/Training Program
DX: R07.9 Chest pain, unspecified (principal)
CPT/HCPCS: 93017

== ENCOUNTER 2024-08-10 00:38 | Day surgery (SDC) | payer BC, SELFPAY ==
[2024-07-20 12:20] VITALS: BMI 30.2
--- NOTE | 2024-08-05 08:57 | PC.NURSE ---
Pt called in with questions regarding medications, anesthesia and times. Pt verbalizes understanding and feels much better after having procedures etc. explained.
[2024-08-10 09:13] VITALS: BP 107/82; PULSE 57; RESP 18; TEMP 36.6; O2SAT 99
[2024-08-10] MEDS: LACTATED RINGERS 1,000 ML 150 ML IV CONT (09:23)
--- NOTE | 2024-08-10 10:23 | PM.HPGS ---
History of Present Illness History of Present Illness Consent: Risks, benefits, and alternatives have been discussed and questions answered. Patient agrees to proceed with procedure. 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 Last colonoscopy 2015 but since tested + for BRCA 1 mutation after her cousin was diagnosed with breast cancer, recommended to get colonoscopies instead every 5 years. Review of Systems Review of Systems: All systems reviewed & are unremarkable except as noted in HPI and below PMFSH Past Medical History Medical History Dyslipidemia (~10/22/17) Endometriosis determined by laparoscopy (~04/1999) Environmental allergies (~02/05/19) History of COVID-19 12/2021 Surgical History Surgical History History of bilateral salpingo-oophorectomy (~2015) History of laparoscopy (~04/1999) History of sinus surgery (~04/01/01) Family History Family History Other Diabetes mellitus Family history of coronary artery disease Family history of malignant neoplasm of ovary Social History Social History Smoking status: Never smoker Second hand tobacco smoke exposure: No Alcohol intake: current Drinks per week: 2 Alcohol use details: consumes 1 glass of wine weekly Substance use: never Substance use type: does not use Lack of Transportation: No Lack of Food: Never True Current Housing: I Have Housing Concerned About Future Housing: No Difficulty Paying Gas/Electric Bills: No Difficulty Paying for Meds: No Currently Unemployed: No Education: Bachelor's Degree Difficulty w/ Childcare or Family Care: No Living arrangements: with family Additional living arrangements comments: Occupation/Education: occupation Gender identity (if verbalized by the patient): Female Sexual Orientation (if Verbalized by the Patient): Straight or Heterosexual Spiritual care concerns: No Agree to blood products: Yes Meds Home Medications and Allergies Home Medications Medication Instructions Recorded Confirmed Type biotin 1 mg capsule 1 mg PO DAILY 07/19/20 08/10/24 History calcium carbonate (Calcium 600) 600 mg PO DAILY 07/19/20 08/10/24 History cholecalciferol (vitamin D3) 50 50 mcg PO DAILY 07/19/20 08/10/24 History mcg (2,000 unit) capsule coenzyme Q10 10 mg capsule 10 mg PO ONCE 07/19/20 08/10/24 History loratadine 10 mg tablet (Claritin) 10 mg PO DAILY 07/19/20 08/10/24 History omega-3 fatty acids 1,000 mg 1,000 mg PO DAILY 07/19/20 08/10/24 History capsule (Fish Oil Concentrate) Saccharomyces boulardii 250 mg 250 mg PO BID 04/05/22 08/10/24 History capsule (Daily Probiotic (S. boulardii)) tpkuwfpakzsi-Je-ybvn-minerals 1 tablet PO .QD 11/20/22 08/10/24 History atorvastatin 40 mg tablet 40 mg PO QHS #90 tabs 06/09/24 08/10/24 Rx omeprazole 20 mg capsule,delayed 20 mg PO DAILY #90 caps 07/31/24 08/10/24 Rx release aspirin 81 mg tablet,delayed 81 mg PO DAILY 08/05/24 08/10/24 History release (Adult Low Dose Aspirin) Allergies Allergy/AdvReac Type Severity Reaction Status Date / Time cefuroxime Allergy Intermediate Unknown Verified 08/10/24 09:12 ofloxacin Allergy Intermediate Unknown Verified 08/10/24 09:12 amoxicillin Allergy Unknown Unknown Verified 08/10/24 09:12 POTASSIUM CLAVULANATE Allergy Mild Unknown Uncoded 08/07/24 14:20 Vital Signs Vital Signs - 24 hr 08/10/24 09:13 Temperature 97.9 F Pulse Rate 57 L Respiratory Rate 18 Blood Pressure 107/82 Pulse Oximetry 99 Oxygen Delivery Room Air Exam Const: General: comfortable and no acut
--- NOTE | 2024-08-10 10:26 | WPDANESEPPF ---
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 Patient Data Age: 63 Gender: F Height: 1.57 m Weight: 76.3 kg Last Vital Signs Temp 97.9 F 08/10/24 09:13 Pulse 57 L 08/10/24 09:13 Resp 18 08/10/24 09:13 BP 107/82 08/10/24 09:13 Pulse Ox 99 08/10/24 09:13 O2 Del Method Room Air 08/10/24 09:13 Allergies Allergy/AdvReac Type Severity Reaction Status Date / Time cefuroxime Allergy Intermediate Unknown Verified 08/10/24 09:12 ofloxacin Allergy Intermediate Unknown Verified 08/10/24 09:12 amoxicillin Allergy Unknown Unknown Verified 08/10/24 09:12 POTASSIUM CLAVULANATE Allergy Mild Unknown Uncoded 08/07/24 14:20 Home Medications Medication Instructions Recorded Confirmed Type biotin 1 mg capsule 1 mg PO DAILY 07/19/20 08/10/24 History calcium carbonate (Calcium 600) 600 mg PO DAILY 07/19/20 08/10/24 History cholecalciferol (vitamin D3) 50 50 mcg PO DAILY 07/19/20 08/10/24 History mcg (2,000 unit) capsule coenzyme Q10 10 mg capsule 10 mg PO ONCE 07/19/20 08/10/24 History loratadine 10 mg tablet (Claritin) 10 mg PO DAILY 07/19/20 08/10/24 History omega-3 fatty acids 1,000 mg 1,000 mg PO DAILY 07/19/20 08/10/24 History capsule (Fish Oil Concentrate) Saccharomyces boulardii 250 mg 250 mg PO BID 04/05/22 08/10/24 History capsule (Daily Probiotic (S. boulardii)) nzoefwwunsmr-Ut-wnjy-minerals 1 tablet PO .QD 11/20/22 08/10/24 History atorvastatin 40 mg tablet 40 mg PO QHS #90 tabs 06/09/24 08/10/24 Rx omeprazole 20 mg capsule,delayed 20 mg PO DAILY #90 caps 07/31/24 08/10/24 Rx release aspirin 81 mg tablet,delayed 81 mg PO DAILY 08/05/24 08/10/24 History release (Adult Low Dose Aspirin) Patient hx anesthesia problems: none Family hx anesthesia problems: none Results Review: All pre-operative results and documents have been reviewed as part of the pre-operative evaluation. [facility] Past Medical History Medical History Dyslipidemia (~10/22/17) Endometriosis determined by laparoscopy (~04/1999) Environmental allergies (~02/05/19) History of COVID-19 12/2021 Surgical History Surgical History History of bilateral salpingo-oophorectomy (~2015) History of laparoscopy (~04/1999) History of sinus surgery (~04/01/01) Family History Family History Other Diabetes mellitus Family history of coronary artery disease Family history of malignant neoplasm of ovary Social History Social History Smoking status: Never smoker Second hand tobacco smoke exposure: No Alcohol intake: current Drinks per week: 2 Alcohol use details: consumes 1 glass of wine weekly Substance use: never Substance use type: does not use Lack of Transportation: No Lack of Food: Never True Current Housing: I Have Housing Concerned About Future Housing: No Difficulty Paying Gas/Electric Bills: No Difficulty Paying for Meds: No Currently Unemployed: No Education: Bachelor's Degree Difficulty w/ Childcare or Family Care: No Living arrangements: with family Additional living arrangements comments: Occupation/Education: occupation Gender identity (if verbalized by the patient): Female Sexual Orientation (if Verbalized by the Patient): Straight or Heterosexual Spiritual care concerns: No Agree to blood products: Yes Anes - Eval Final PreProcedure Day of Procedure 08/10/24 10:26 Patient weight: obese Heart: regular rate and rhythm Lungs: clear to auscultation Airway: Mallampati scal
--- NOTE | 2024-08-10 10:35 | SUR.OPER ---
EGD: [id number] COLON: Start 1033
[2024-08-10 10:49] VITALS: BP 95/56; PULSE 65; RESP 16; O2SAT 100
[2024-08-10 10:59] VITALS: BP 98/51; PULSE 65; RESP 25; O2SAT 100
[2024-08-10 11:09] VITALS: BP 106/54; PULSE 50; RESP 15; O2SAT 100
== END 2024-08-10 11:25 | disposition home or self-care (01) ==
PROVIDERS: PCP Family Medicine; Referring Provider Nurse Practitioner; Visit Provider Internal Medicine Gastroenterology
PROC: 0DJ08ZZ Inspection of Upper Intestinal Tract, Via Natural or Artificial Opening Endoscopic (ICD-10-PCS; CPT 43235; principal; 2024-08-10 10:30)
DX: K64.8 Other hemorrhoids (principal); K21.9 Gastro-esophageal reflux disease without esophagitis; E78.5 Hyperlipidemia, unspecified; N80.9 Endometriosis, unspecified; E66.9 Obesity, unspecified; Z68.30 Body mass index [BMI] 30.0-30.9, adult; Z79.82 Long term (current) use of aspirin; Z98.890 Other specified postprocedural states; Z15.01 Genetic susceptibility to malignant neoplasm of breast; Z15.02 Genetic susceptibility to malignant neoplasm of ovary; Z80.41 Family history of malignant neoplasm of ovary; Z82.49 Family history of ischemic heart disease and other diseases of the circulatory system
CPT/HCPCS: 43239; 45378; 88305; J2704; J7120

== ENCOUNTER 2024-11-27 07:55 | Outpatient (CLI) | payer BC, SELFPAY ==
[2024-11-27 11:54] LABS: Basophils Percent Auto 0.4 % (0.2-1.2); Eosinophils Absolute Auto 0.2 K/mm3 (0-0.3); Eosinophils Percent Auto 3.2 % (0-4.4); Hematocrit 41.6 % (37.0-47.0); Hemoglobin 13.4 g/dL (12.0-15.0); Lymphocytes Absolute Auto 1.95 K/mm3 (0.9-3.2); Lymphocytes Percent Auto 39.4 % (18.3-44.2); Mean Corpuscular HGB Conc 32.2 g/dl (32-36); Mean Corpuscular Hemoglobin 30.3 pg (26-34); Mean Corpuscular Volume 94.1 fl (80-100); Monocytes Absolute Auto 0.4 K/mm3 (0.1-0.6); Monocytes Percent Auto 8.1 % (2.6-8.5); Neutrophils Absolute Auto 2.4 K/mm3 (1.3-6.7); Neutrophils Percent Auto 48.9 % (45.5-73.1); Platelet Count Result 253 k/mm3 (150-375); Red Blood Count 4.42 M/mm3 (4.2-5.4); Red Cell Distribution Width 13.1 % (11.5-14.5)
[2024-11-27 12:26] LABS: Alanine Aminotransferase 23 U/L (6-35); Albumin Level 4.3 g/dL (3.5-5.1); Alkaline Phosphatase 57 U/L (38-126); Anion Gap 3 mmol/L (4-12); Aspartate Amino Transferase 51 U/L (14-36); Bilirubin,Total 0.6 mg/dL (0.2-1.3); Blood Urea Nitrogen 14 mg/dL (7-17); Calcium 9.3 mg/dL (8.4-10.2); Carbon Dioxide 27 mmol/L (22-30); Chloride 103 mmol/L (98-107); Cholesterol 169 mg/dL (0-200); Estimated Glomerular Filt Rate > 60; Glucose 89 mg/dL (65-110); HDL Direct 71 mg/dL; Potassium 4.1 mmol/L (3.4-5.0); Sodium 133 mmol/L (137-145); Triglycerides 89 mg/dL (<150)
[2024-11-27 12:34] LABS: Vitamin D 25 Hydroxy 70.6 ng/mL
[2024-11-27 12:36] LABS: LDL Cholesterol Direct 63 mg/dL
[2024-11-27 12:47] LABS: Thyroid Stimulating Hormone Reflex 0.362 uIU/mL (0.465-4.68)
[2024-11-27 13:57] LABS: Hemoglobin A1C 5.7 % (<5.7)
[2024-11-27 15:09] LABS: Total Triiodothyronine (T3) 1.11 NG/ML (0.97-1.69)
== END 2024-11-27 07:56 | disposition home or self-care (01) ==
LOC: ANHGOSHLAB 07:57
PROVIDERS: PCP Family Medicine; Visit Provider Family Medicine
DX: Z00.00 Encounter for general adult medical examination without abnormal findings (principal); R51.9 Headache, unspecified; F41.9 Anxiety disorder, unspecified; R73.9 Hyperglycemia, unspecified; N18.31 Chronic kidney disease, stage 3a; E53.8 Deficiency of other specified B group vitamins; E55.9 Vitamin D deficiency, unspecified; E78.5 Hyperlipidemia, unspecified
CPT/HCPCS: 36415; 80053; 80061; 82306; 82607; 83036; 84439; 84443; 84480; 85025

== ENCOUNTER 2025-02-15 11:50 | Emergency (ER) | payer BC, SELFPAY ==
[2025-02-15 12:01] VITALS: BP 106/65; PULSE 77; RESP 16; TEMP 36.5; O2SAT 100
--- NOTE | 2025-02-15 12:01 | ED.URI ---
HPI - URI/Sore Throat General Chief Complaint: Upper Respiratory Infection Stated Complaint: Sinus Infection Symptoms Time Seen by Provider: 02/15/25 12:17 Source: patient and RN notes reviewed Mode of arrival: ambulatory Limitations: no limitations History of Present Illness HPI Narrative: 64-year-old female presents with concern for cold symptoms, diarrhea, heartburn. Reports symptoms started over the weekend. Reports cold symptoms have mainly gone away and now she has diarrhea. She denies vomiting, denies nausea reports an episode of heartburn overnight. MD elicited complaint: cough and sore throat Related Data Home Medications ?Medication ?Instructions ?Recorded ?Confirmed ?Last Taken ?Type biotin 1 mg capsule 1 mg PO DAILY 07/19/20 11/24/24 08/09/24 History calcium carbonate (Calcium 600) 600 mg PO DAILY 07/19/20 11/24/24 08/09/24 History cholecalciferol (vitamin D3) 50 50 mcg PO DAILY 07/19/20 11/24/24 08/09/24 History mcg (2,000 unit) capsule coenzyme Q10 10 mg capsule 10 mg PO ONCE 07/19/20 11/24/24 08/09/24 History loratadine 10 mg tablet (Claritin) 10 mg PO DAILY 07/19/20 11/24/24 08/09/24 History omega-3 fatty acids 1,000 mg 1,000 mg PO DAILY 07/19/20 11/24/24 08/09/24 History capsule (Fish Oil Concentrate) Saccharomyces boulardii 250 mg 250 mg PO BID 04/05/22 11/24/24 08/09/24 History capsule (Daily Probiotic (S. boulardii)) qtgxmsxajiyo-Yu-yzbh-minerals 1 tablet PO .QD 11/20/22 11/24/24 08/09/24 History aspirin 81 mg tablet,delayed 81 mg PO DAILY 08/05/24 11/24/24 08/09/24 History release (Adult Low Dose Aspirin) famotidine 20 mg tablet (Pepcid AC) 20 mg PO DAILY PRN 11/24/24 11/24/24 Unknown History Allergies Allergy/AdvReac Type Severity Reaction Status Date / Time cefuroxime Allergy Intermediate Unknown Verified 02/15/25 11:53 ofloxacin Allergy Intermediate Unknown Verified 02/15/25 11:53 amoxicillin Allergy Unknown Unknown Verified 02/15/25 11:53 POTASSIUM CLAVULANATE Allergy Mild Unknown Uncoded 02/15/25 11:53 Review of Systems Review of Systems: CONSTITUTIONAL: Reports malaise. Denies chills, sweats, or fever. EYES: Denies visual changes, redness, or discharge. ENT: Reports rhinorrhea, congestion CARDIOVASCULAR: Denies chest pain, palpitations, or edema. RESPIRATORY: Reports cough. Denies dyspnea. GASTROINTESTINAL: Denies abdominal pain, nausea, vomiting. Reports heartburn and diarrhea SKIN: Denies rash or itching. MUSCULOSKELETAL: Reports myalgia. NEUROLOGIC: Denies headache. All systems reviewed & are unremarkable except as noted in HPI and below PMFSH Past Medical History Medical History CKD stage 3a, GFR 45-59 ml/min History of COVID-19 12/2021 Endometriosis determined by laparoscopy (~04/1999) Dyslipidemia (~10/22/17) Environmental allergies (~02/05/19) Surgical History Surgical History History of laparoscopy (~04/1999) History of sinus surgery (~04/01/01) History of bilateral salpingo-oophorectomy (~2015) Family History Family History Other Diabetes mellitus Family history of coronary artery disease Family history of malignant neoplasm of ovary Social History Social History Smoking status: Never smoker Second hand tobacco smoke exposure: No Alcohol intake: current Drinks per week: 2 Alcohol use details: consumes 1 glass of wine weekly Substance use: never Substance use type: does not use Lack of Transportation: No Lack of Food: Never True Current Housing: I Have Housing Concerned About Future Housing: No Difficulty Paying Gas/Electric Bills: No Difficulty Paying for Meds: No Currently Unemployed: No Education: Bachelor's Degree Difficulty w/ Childcare or Family Care: No Living arrangements: with family Additional living arrangements comments: Occupation/Education: occupation Gender identity (if verbalized by the patient): Female Sexual Orientation (if Verbalized by the Patient): Straight or Heterosexual Spiritual care concerns: No Agree to blood products: Yes Comments At time of signature, agree with nursing past medical, surgical, social and family history. There is no relevant family history pertinent to the presenting complaint Exam Narrative: GENERAL: Well-appearing, well-nourished, and in no acute distress. HEAD: Normocephalic EYES: PERRLA, conjunctivae clear ENT: Nares clear. Mucous membranes moist. TM pearly santos with sharp light reflex bilaterally; no tragal tenderness. Oropharynx not erythematous without lesions. Tonsils not enlarged and without exudate, no drooling, no hoarseness, no trismus, uvula midline. NECK: Supple. No lymphadenopathy CHEST: Clear to auscultation, breath sounds equal. No wheezing, rhonchi, rales, or stridor. No respiratory distress, speaks in full sentences. ABD: Soft, nontender, normoactive bowel sounds HEART: Regular rate and rhythm. No murmur heard. SKIN: Warm, dry, no rash. NEURO: Alert and oriented x3. PSYCH: Normal mood and affect Course Course Emergency Course: Patient is aware of diagnosis, understands and agrees to treatment plan. Anticipatory guidance given. Patient agrees to follow-up as directed and is aware of reasons to seek care at the emergency department. Portions of this record may have been created with voice recognition software Level of Care: Express Care Visit Vital Signs Vital signs: Reviewed. MDM - URI/Sore Throat MDM Narrative Medical decision making narrative: Differential diagnosis considered: Harris virus, strep pharyngitis, allergic rhinitis, upper respiratory tract infection, sinusitis, rhinosinusitis, nasopharyngitis. viral pharyngitis, otitis media, otitis externa, pneumonia, bronchitis, viral cough syndrome, viral syndrome, and influenza. Exam findings show no acute concerns or changes; patient is non-toxic appearing and is in no distress. Patient is appropriate for outpatient treatment and follow-up. Lab Data Attestation: I reviewed the patient's lab results. Critical Care Time Critical Care Time Critical Care Time: No Discharge Plan Discharge Clinical Impression: Acute viral syndrome Patient Disposition: Home, Self-Care Condition: Stable Instructions: Gastroenteritis (ED) Additional Instructions: Stay hydrated. Take small sips of fluid containing electrolytes frequently. You should go to the hospital if you experience persistent nausea and vomiting that does not resolve and does not allow you to tolerate any food or fluids, persistent fevers for greater than 2-3 more days, increasing abdominal pain that persists despite medications, persistent diarrhea, dizziness, syncope (fainting), or for any other concerns. Patient Language: Upper Sorbian Prescriptions: No Action loratadine [Claritin] 10 mg tablet 10 mg PO DAILY cholecalciferol (vitamin D3) 50 mcg (2,000 unit) capsule 50 mcg PO DAILY calcium carbonate [Calcium 600] 600 mg calcium (1,500 mg) tablet 600 mg PO DAILY omega-3 fatty acids [Fish Oil Concentrate] 1,000 mg capsule 1,000 mg PO DAILY coenzyme Q10 10 mg capsule 10 mg PO ONCE biotin 1 mg capsule 1 mg PO DAILY rjekopkrophw-Ht-kvqa-minerals Tablet 1 tablet PO .QD Saccharomyces boulardii [Daily Probiotic (S. boulardii)] 250 mg capsule 250 mg PO BID famotidine [Pepcid AC] 20 mg tablet 20 mg PO DAILY PRN aspirin [Adult Low Dose Aspirin] 81 mg Tablet,Delayed Release (Dr/Ec) 81 mg PO DAILY atorvastatin 40 mg tablet 40 mg PO QHS Qty: 90 1RF Follow-up/Referrals: Ruy Mendoza MD [Primary Care Provider] - Stand Alone Forms: Work/School Release IP Time of Disposition: 12:28
[2025-02-15 12:16] LABS: EDCOVIDSCREEN Negative (Negative); EDINFLUASCREEN Negative (Negative); EDINFLUBSCREEN Negative (Negative)
== END 2025-02-15 12:29 | disposition home or self-care (01) ==
PROVIDERS: Emergency Provider Nurse Practitioner; PCP Family Medicine
DX: B34.9 Viral infection, unspecified (principal); Z20.822 Contact with and (suspected) exposure to COVID-19; N18.31 Chronic kidney disease, stage 3a; E78.5 Hyperlipidemia, unspecified; N80.9 Endometriosis, unspecified; Z86.16 Personal history of COVID-19; Z79.82 Long term (current) use of aspirin
CPT/HCPCS: 87426; 87804; 99212; G0463

== ENCOUNTER 2025-03-06 09:11 | Emergency (ER) | payer BC, SELFPAY ==
[2025-03-06 09:47] VITALS: BP 129/54; PULSE 69; RESP 16; TEMP 36.6; O2SAT 99
--- NOTE | 2025-03-06 10:14 | ED_ITS ---
HPI - Ear Problem General Chief complaint: Ear Stated complaint: EARACHE/COUGH/DRAINAGE Time Seen by Provider: 03/06/25 10:14 Source: patient, RN notes reviewed and old records reviewed Mode of arrival: ambulatory Limitations: no limitations History of Present Illness HPI Narrative: 64 year old female presents to [facility] care with complaints of bilateral ear pain feels like echo in ears,sinus pressure,cough. Patient reports that she was diagnosed with virus 3 weeks ago and was prescribed Prednisone for 6 days after testing negative for flu and COVID. She reports that cough is about 95% gone but has feels like she is talking in a tunnel and has ear pain, sinus pressure and headache discomfort still. MD Complaint: ear pain and other (echo ears and pressure in sinus, headache) Location: bilateral Duration: constant Severity: moderate Discharge from ear: Reports no Treatment prior to arrival: oral analgesic and other (flonase and Claritin and completed steroids) Related Data Home Medications ?Medication ?Instructions ?Recorded ?Confirmed ?Last Taken ?Type biotin 1 mg capsule 1 mg PO DAILY 07/19/20 11/24/24 08/09/24 History calcium carbonate (Calcium 600) 600 mg PO DAILY 07/19/20 11/24/24 08/09/24 History cholecalciferol (vitamin D3) 50 50 mcg PO DAILY 07/19/20 11/24/24 08/09/24 History mcg (2,000 unit) capsule coenzyme Q10 10 mg capsule 10 mg PO ONCE 07/19/20 11/24/24 08/09/24 History loratadine 10 mg tablet (Claritin) 10 mg PO DAILY 07/19/20 11/24/24 08/09/24 History omega-3 fatty acids 1,000 mg 1,000 mg PO DAILY 07/19/20 11/24/24 08/09/24 History capsule (Fish Oil Concentrate) Saccharomyces boulardii 250 mg 250 mg PO BID 04/05/22 11/24/24 08/09/24 History capsule (Daily Probiotic (S. boulardii)) isoiupvwsosn-Jv-cftu-minerals 1 tablet PO .QD 11/20/22 11/24/24 08/09/24 History aspirin 81 mg tablet,delayed 81 mg PO DAILY 08/05/24 11/24/24 08/09/24 History release (Adult Low Dose Aspirin) famotidine 20 mg tablet (Pepcid AC) 20 mg PO DAILY PRN 11/24/24 11/24/24 Unknown History Allergies Allergy/AdvReac Type Severity Reaction Status Date / Time cefuroxime Allergy Intermediate Unknown Verified 03/06/25 09:47 ofloxacin Allergy Intermediate Unknown Verified 03/06/25 09:47 amoxicillin Allergy Unknown Unknown Verified 03/06/25 09:47 POTASSIUM CLAVULANATE Allergy Mild Unknown Uncoded 03/06/25 09:47 Review of Systems Review of Systems: CONSTITUTIONAL: Denies malaise, chills, sweats, or fever.reports fatigue EYES: Denies visual changes, redness, or discharge. ENT: Reports rhinorrhea, congestion, sinus pain, bilateral otalgia and no sore throat. CARDIOVASCULAR: Denies chest pain, palpitations, or edema. RESPIRATORY: Reports cough.? Denies dyspnea. GASTROINTESTINAL: Denies abdominal pain, nausea, vomiting, diarrhea SKIN: Denies rash or itching. MUSCULOSKELETAL: Denies myalgia. NEUROLOGIC: Reports headache. All systems reviewed & are unremarkable except as noted in HPI and below PMFSH Past Medical History Medical History CKD stage 3a, GFR 45-59 ml/min History of COVID-19 12/2021 Endometriosis determined by laparoscopy (~04/1999) Dyslipidemia (~10/22/17) Environmental allergies (~02/05/19) Surgical History Surgical History History of laparoscopy (~04/1999) History of sinus surgery (~04/01/01) History of bilateral salpingo-oophorectomy (~2015) Family History Family History Other Diabetes mellitus Family history of coronary artery disease Family history of malignant neoplasm of ovary Social History Social History Smoking status: Never smoker Second hand tobacco smoke exposure: No Alcohol intake: current Drinks per week: 2 Alcohol use details: consumes 1 glass of wine weekly Substance use: never Substance use type: does not use Lack of Transportation: No Lack of Food: Never True Current Housing: I Have Housing Concerned About Future Housing: No Difficulty Paying Gas/Electric Bills: No Difficulty Paying for Meds: No Currently Unemployed: No Education: Bachelor's Degree Difficulty w/ Childcare or Family Care: No Living arrangements: with family Additional living arrangements comments: Occupation/Education: occupation Gender identity (if verbalized by the patient): Female Sexual Orientation (if Verbalized by the Patient): Straight or Heterosexual Spiritual care concerns: No Agree to blood products: Yes Comments At time of signature, agree with nursing past medical, surgical, social and family history. There is no relevant family history pertinent to the presenting complaint Exam Narrative: GENERAL: Well-appearing, well-nourished, and in no acute distress. HEAD: Normocephalic EYES: PERRLA, conjunctivae clear ENT: Nares clear, turbinates edematous and erythematous, clear discharge, sinus pressure and headache discomfort. Mucous membranes moist. TM pearly santos with dull light reflex bilaterally; no tragal tenderness. Oropharynx erythematous without lesions. Tonsils not enlarged and without exudate, no drooling, no hoarseness, no trismus, uvula midline.post nasal drainage NECK: Supple. No lymphadenopathy CHEST: Clear to auscultation, breath sounds equal. No wheezing, rhonchi, rales, or stridor. No respiratory distress, speaks in full sentences.dry cough SAO2 99% on room air HEART: Regular rate and rhythm. No murmur heard. SKIN: Warm, dry, no rash. NEURO: Alert and oriented x3. PSYCH: Normal mood and affect Course Course Emergency Course: Patient is aware of diagnosis, understands and agrees to treatment plan.? Anticipatory guidance given.? Patient agrees to follow-up as directed and is aware of reasons to seek care at the emergency department. Portions of this record may have been created with voice recognition software Level of Care: Express Care Visit Vital Signs Vital signs: Vital Signs Temperature 36.6 C 03/06/25 09:47 Pulse Rate 69 03/06/25 09:47 Respiratory Rate 16 03/06/25 09:47 Blood Pressure 129/54 L 03/06/25 09:47 Pulse Oximetry 99 03/06/25 09:47 Temperature 36.6 C 03/06/25 09:47 Pulse Rate 69 03/06/25 09:47 Respiratory Rate 16 03/06/25 09:47 Blood Pressure 129/54 L 03/06/25 09:47 Pulse Oximetry 99 03/06/25 09:47 Reviewed Medical Decision Making Differential Diagnosis Differential Diagnosis: URI, otitis media, eustachian tube dysfunction, cough, viral infection, sinusitis Medical Records Medical records reviewed: Yes I reviewed the external patient's medical records. Vital Signs Vital Signs: Vital Signs Temperature 36.6 C 03/06/25 09:47 Pulse Rate 69 03/06/25 09:47 Respiratory Rate 16 03/06/25 09:47 Blood Pressure 129/54 L 03/06/25 09:47 Pulse Oximetry 99 03/06/25 09:47 Temperature 36.6 C 03/06/25 09:47 Pulse Rate 69 03/06/25 09:47 Respiratory Rate 16 03/06/25 09:47 Blood Pressure 129/54 L 03/06/25 09:47 Pulse Oximetry 99 03/06/25 09:47 reviewed Critical Care Time Critical Care Time Critical Care Time: No Discharge Plan Discharge Clinical Impression: Sinusitis Qualifiers: Sinusitis location: pansinusitis Chronicity: acute Recurrence: not specified as recurrent Qualified Code(s): J01.40 - Acute pansinusitis, unspecified Patient Disposition: Home Condition: Stable Instructions: Antibiotic Form, Sinusitis (ED) Additional Instructions: Increase fluids especially juices and water Nzxg-imv-zbwapsm cough and cold medicine of your choice for your symptoms Tylenol or Ibuprofen for any fever or pain Continue your Flonase and daily Claritin Mucinex daily heat to the face 20-30 minutes 4-6 times a day for pain Salt water gargles, throat lozenges or throat sprays as desired Antibiotic as directed--finished the medication If your symptoms persist, change or worsen significantly before you can contact your personal physician then please, without delay, go to the emergency department for further evaluation. Follow-up with PCP in 7-10 days or sooner if needed Follow up with PCP soon in regards to your blood pressure which is elevated above threshold for referral. Blood pressure above 120/80 may indicate pre- hypertension. minimal elevation 129/54 Patient Language: Swedish Prescriptions: New doxycycline monohydrate 100 mg capsule 100 mg PO BID Qty: 14 0RF Rx Instructions: take with food No Action loratadine [Claritin] 10 mg tablet 10 mg PO DAILY cholecalciferol (vitamin D3) 50 mcg (2,000 unit) capsule 50 mcg PO DAILY calcium carbonate [Calcium 600] 600 mg calcium (1,500 mg) tablet 600 mg PO DAILY omega-3 fatty acids [Fish Oil Concentrate] 1,000 mg capsule 1,000 mg PO DAILY coenzyme Q10 10 mg capsule 10 mg PO ONCE biotin 1 mg capsule 1 mg PO DAILY odfmxzidagtx-Gg-dybm-minerals Tablet 1 tablet PO .QD Saccharomyces boulardii [Daily Probiotic (S. boulardii)] 250 mg capsule 250 mg PO BID famotidine [Pepcid AC] 20 mg tablet 20 mg PO DAILY PRN aspirin [Adult Low Dose Aspirin] 81 mg Tablet,Delayed Release (Dr/Ec) 81 mg PO DAILY atorvastatin 40 mg tablet 40 mg PO QHS Qty: 90 1RF methylprednisolone [Medrol (Smooth)] 4 mg tablets,dose pack See Rx Instructions PO PER PKG DIR Qty: 21 0RF Rx Instructions: PO PER PKG DIR Follow-up/Referrals: Ruy Mendoza MD [Primary Care Provider] - Time of Disposition: 10:30 Quality [place] Coma Scale Eyes: Open Verbal: Oriented and Alert Motor: Follows Commands Alhaji Coma Total Score: 15
== END 2025-03-06 10:38 | disposition home or self-care (01) ==
PROVIDERS: Emergency Provider Registered Nurse; PCP Family Medicine
DX: J01.40 Acute pansinusitis, unspecified (principal); N18.30 Chronic kidney disease, stage 3 unspecified; E78.5 Hyperlipidemia, unspecified; N80.9 Endometriosis, unspecified; Z86.16 Personal history of COVID-19; Z79.82 Long term (current) use of aspirin
CPT/HCPCS: 99213; G0463

== ENCOUNTER 2025-05-15 08:02 | Emergency (ER) | payer BC, SELFPAY ==
--- NOTE | 2025-05-15 08:07 | ED_ITS ---
HPI - Female Genitourinary General Chief complaint: Urogenital-Female Stated complaint: UTI SYMPTOMS Time Seen by Provider: 05/15/25 08:07 Source: patient Mode of arrival: ambulatory Limitations: no limitations History of Present Illness HPI Narrative: 64-year-old female presents with complaint of urinary urgency, dysuria, blood in urine, abdominal pressure starting last night. Afebrile. Does report mild chills. Denies nausea vomiting. All systems reviewed and negative except as noted above. Related Data Home Medications ?Medication ?Instructions ?Recorded ?Confirmed ?Last Taken ?Type biotin 1 mg capsule 1 mg PO DAILY 07/19/20 11/24/24 08/09/24 History calcium carbonate (Calcium 600) 600 mg PO DAILY 07/19/20 11/24/24 08/09/24 History cholecalciferol (vitamin D3) 50 50 mcg PO DAILY 07/19/20 11/24/24 08/09/24 History mcg (2,000 unit) capsule coenzyme Q10 10 mg capsule 10 mg PO ONCE 07/19/20 11/24/24 08/09/24 History loratadine 10 mg tablet (Claritin) 10 mg PO DAILY 07/19/20 11/24/24 08/09/24 History omega-3 fatty acids 1,000 mg 1,000 mg PO DAILY 07/19/20 11/24/24 08/09/24 History capsule (Fish Oil Concentrate) Saccharomyces boulardii 250 mg 250 mg PO BID 04/05/22 11/24/24 08/09/24 History capsule (Daily Probiotic (S. boulardii)) zyryymrcmnfv-Mc-frbt-minerals 1 tablet PO .QD 11/20/22 11/24/24 08/09/24 History aspirin 81 mg tablet,delayed 81 mg PO DAILY 08/05/24 11/24/24 08/09/24 History release (Adult Low Dose Aspirin) famotidine 20 mg tablet (Pepcid AC) 20 mg PO DAILY PRN 11/24/24 11/24/24 Unknown History Allergies Allergy/AdvReac Type Severity Reaction Status Date / Time cefuroxime Allergy Intermediate Unknown Verified 05/15/25 08:16 ofloxacin Allergy Intermediate Unknown Verified 05/15/25 08:16 amoxicillin Allergy Unknown Unknown Verified 05/15/25 08:16 POTASSIUM CLAVULANATE Allergy Mild Unknown Uncoded 05/15/25 08:16 Review of Systems Review of Systems: CONSTITUTIONAL: Denies fever, chills, or sweats. EYES: Denies visual changes, redness, or discharge. ENT: Denies rhinorrhea, congestion, sore throat, or otalgia. CARDIOVASCULAR: Denies chest pain, palpitations, or edema. RESPIRATORY: Denies cough or dyspnea. GASTROINTESTINAL: Denies abdominal pain, nausea, vomiting, or diarrhea. GENITOURINARY: Reports dysuria, hematuria, frequency, urgency. SKIN: Denies rash or itching. MUSCULOSKELETAL: Denies back pain, joint pain, or myalgia. NEUROLOGIC: Denies headache, numbness, or weakness. PSYCHIATRIC: Denies anxiety or depression. All other systems reviewed are negative, except as documented in HPI. [facility] Past Medical History Medical History CKD stage 3a, GFR 45-59 ml/min History of COVID-19 12/2021 Endometriosis determined by laparoscopy (~04/1999) Dyslipidemia (~10/22/17) Environmental allergies (~02/05/19) Surgical History Surgical History History of laparoscopy (~04/1999) History of sinus surgery (~04/01/01) History of bilateral salpingo-oophorectomy (~2015) Family History Family History Other Diabetes mellitus Family history of coronary artery disease Family history of malignant neoplasm of ovary Social History Social History Smoking status: Never smoker Second hand tobacco smoke exposure: No Alcohol intake: current Drinks per week: 2 Alcohol use details: consumes 1 glass of wine weekly Substance use: never Substance use type: does not use Lack of Transportation: No Lack of Food: Never True Current Housing: I Have Housing Concerned About Future Housing: No Difficulty Paying Gas/Electric Bills: No Difficulty Paying for Meds: No Currently Unemployed: No Education: Bachelor's Degree Difficulty w/ Childcare or Family Care: No Living arrangements: with family Additional living arrangements comments: Occupation/Education: occupation Gender identity (if verbalized by the patient): Female Sexual Orientation (if Verbalized by the Patient): Straight or Heterosexual Spiritual care concerns: No Agree to blood products: Yes Comments At time of signature, agree with nursing past medical, surgical, social and family history. There is no relevant family history pertinent to the presenting complaint. Exam Narrative: GENERAL: This is a well-nourished, well-developed patient, in no apparent distress. HEAD: normocephalic, atraumatic. EYES: PERRL. Sclera clear/white. Vision is grossly intact. EARS: External ears normal NOSE: External nose normal NECK: Neck supple, non-tender without lymphadenopathy, masses or thyromegaly. CARDIOVASCULAR: Regular rate and rhythm without murmurs, gallops, or rubs. RESPIRATORY: Clear to auscultation. Breath sounds equal bilaterally. No wheezes, rales, or rhonchi. SKIN: warm, Dry, intact with no suspicious lesions or rash, good texture and turgor. NEURO: awake, alert, and oriented to person, place and time. There were no obvious focal neurologic abnormalities. EXTREMITIES: No joint tenderness, effusion, or edema noted. Course Course Level of Care: Express Care Visit Vital Signs Vital signs: Vital Signs Temperature 36.6 C 05/15/25 08:16 Pulse Rate 77 05/15/25 08:16 Respiratory Rate 16 05/15/25 08:16 Blood Pressure 107/62 05/15/25 08:16 Pulse Oximetry 99 05/15/25 08:16 Oxygen Delivery Room Air 05/15/25 08:16 Temperature 36.6 C 05/15/25 08:16 Pulse Rate 77 05/15/25 08:16 Respiratory Rate 16 05/15/25 08:16 Blood Pressure 107/62 05/15/25 08:16 Pulse Oximetry 99 05/15/25 08:16 Oxygen Delivery Room Air 05/15/25 08:16 Reviewed MDM - Female Genitourinary MDM Narrative Medical decision making narrative: Urinalysis positive leukocytes, positive blood. Patient is well-appearing, nontoxic. Afebrile. Will treat with antibiotic. Patient agrees with plan of care. Differential Diagnosis Differential diagnosis: Likely urinary tract infection Discharge Plan Discharge Clinical Impression: Urinary tract infection Patient Disposition: Home Condition: Stable Instructions: Antibiotic Form, Urinary Tract Infection in Women (ED) Additional Instructions: Take antibiotic as prescribed until gone. Purchase uyhn-vhq-ozcwafk azo and take as directed on packaging. Drink at least 64 oz of water a day. Follow-up with your primary care physician if symptoms are not improving. If you have severe pain, vomiting, fever go to the ER. Patient Language: [place] Citizen Prescriptions: New sulfamethoxazole-trimethoprim [Bactrim DS] 800-160 mg tablet 1 tablet PO Q12H 5 Days Qty: 10 0RF No Action doxycycline monohydrate 100 mg capsule 100 mg PO BID Qty: 14 0RF Rx Instructions: take with food loratadine [Claritin] 10 mg tablet 10 mg PO DAILY cholecalciferol (vitamin D3) 50 mcg (2,000 unit) capsule 50 mcg PO DAILY calcium carbonate [Calcium 600] 600 mg calcium (1,500 mg) tablet 600 mg PO DAILY omega-3 fatty acids [Fish Oil Concentrate] 1,000 mg capsule 1,000 mg PO DAILY coenzyme Q10 10 mg capsule 10 mg PO ONCE biotin 1 mg capsule 1 mg PO DAILY mnvxrsutwjha-Fc-aspg-minerals Tablet 1 tablet PO .QD Saccharomyces boulardii [Daily Probiotic (S. boulardii)] 250 mg capsule 250 mg PO BID famotidine [Pepcid AC] 20 mg tablet 20 mg PO DAILY PRN aspirin [Adult Low Dose Aspirin] 81 mg Tablet,Delayed Release (Dr/Ec) 81 mg PO DAILY atorvastatin 40 mg tablet 40 mg PO QHS Qty: 90 1RF methylprednisolone [Medrol (Smooth)] 4 mg tablets,dose pack See Rx Instructions PO PER PKG DIR Qty: 21 0RF Rx Instructions: PO PER PKG DIR Follow-up/Referrals: Ruy Mendoza MD [Primary Care Provider] - Time of Disposition: 08:29
[2025-05-15 08:16] VITALS: BP 107/62; PULSE 77; RESP 16; TEMP 36.6; O2SAT 99
[2025-05-15 08:44] LABS: EDUAAPPEAR Clear; EDUABILI Negative (Negative); EDUABLOOD 2+ (Negative); EDUACOLOR1 Yellow; EDUAGLUCOSE Negative (Negative); EDUAKETONE Negative (Negative); EDUALEUKO 3+ (Negative); EDUANITRATE Negative (Negative); EDUAPH 7.5; EDUAPROTEIN Negative (Negative); EDUAUROBILI 0.2
== END 2025-05-15 08:34 | disposition home or self-care (01) ==
PROVIDERS: Emergency Provider Nurse Practitioner Family; PCP Family Medicine
DX: N39.0 Urinary tract infection, site not specified (principal); N18.31 Chronic kidney disease, stage 3a; N80.9 Endometriosis, unspecified; E78.5 Hyperlipidemia, unspecified; Z86.16 Personal history of COVID-19; Z79.82 Long term (current) use of aspirin
CPT/HCPCS: 81003; 87086; 87186; 99213; G0463